=== PATIENT | female | born 1950 | race Caucasian/White ===

== ENCOUNTER 2020-07-23 11:04 | Emergency (ER) | payer MEDICARE ==
[~2020-07-23] VITALS: Ht 160 cm; Wt 80.0 kg
--- NOTE | 2020-07-23 12:00 | NUR ---
PT PRESENT TO ER FOR CLOTTED RIGHT CATH FOR DIALYSIS. DENIES CP OR ARM PAIN. SITE IS CDI.
[2020-07-23 13:09] LABS: BASOPHILS % (AUTO) 2 % (0-1); EOSINOPHILS % (AUTO) 4 % (1-7); LYMPHOCYTES % (AUTO) 15 % (22-44); MEAN CORPUSCULAR HEMOGLOBIN 31.4 pg (27.0-34.8); MEAN CORPUSCULAR HGB CONC 33.8 g/dL (32.4-35.8); MEAN PLATELET VOLUME 8.1 fL (7.4-10.4); MONOCYTES % (AUTO) 9 % (2-9); NEUTROPHILS % (AUTO) 71 % (42-75); PLATELET COUNT 254 x10^3/uL (130-400); RED BLOOD COUNT 2.85 x10^6/uL (3.82-5.3); RED CELL DISTRIBUTION WIDTH 15.6 % (9.6-15.2)
--- NOTE | 2020-07-23 13:09 | NUR ---
PT RESTING. IR WILL TAKE PT IN AFTERNOON. IV ESTABLISHED, LABS DRAWN. GIVEN PILLOW, BLANKETS. LIGHTS DIMMED. CALL LIGHT IN REACH. VSS
[2020-07-23 13:11] LABS: MD NO
[2020-07-23 13:18] LABS: ANION GAP 9 mmol/L (5-15); CALCIUM 8.8 mg/dL (8.5-10.1); CHLORIDE 101 mmol/L (98-107); CREATININE 7.43 mg/dL (0.55-1.02)
--- NOTE | 2020-07-23 14:03 | NUR ---
BREAK RN- PT RESTING IN BED, CALL LIGHT IN REACH.
[2020-07-23] MEDS ORDERED: LIDOCAINE 1%, 10ML ONE (14:22)
[2020-07-23] MEDS ORDERED: MIDAZOLAM 1 MG/ML, 5ML ONE (14:37)
[2020-07-23] MEDS ORDERED: FENTANYL PF 100 MCG/2ML ONE (14:37)
--- NOTE | 2020-07-23 14:40 | NUR ---
PT IN IR
[2020-07-23] MEDS ORDERED: LIDOCAINE 1%, 20ML ONE (14:57)
--- NOTE | 2020-07-23 15:29 | NUR ---
Kalli gruber in ED - 07/23/20 at 1539 by [facility] IR CALLED TO CONFIRM IF CATH NEEDS TO BE DONE TODAY BECAUSE IR TEAM IS NOT AVAILABLE. WILL DISCUSS Gianni PARKER
--- NOTE | 2020-07-23 15:38 | NUR ---
REPORT FROM IR 5 VERSED 100 MCG FENT WENT THROUGH SUBCLAVIAN W NEW CATH PORT. OLD ONE REMOVED. PT TOLERATED PROCEDURE WELL 135/60 HR60
[2020-07-23 16:04] VITALS: BP 167/66
--- NOTE | 2020-07-23 16:04 | NUR ---
PT BACK IN ROOM FROM IR. PT DROWSY. EASILY AROUSED. SITE CDI, VSS
[2020-07-23] MEDS ORDERED: ACETAMINOPHEN 500 MG TABLET ONE (16:42)
--- NOTE | 2020-07-23 16:47 | NUR ---
MEDICATED W TYLENOL FOR PAIN IN SHOULDER AND PLACED ICE PACK
[2020-07-23] MEDS ORDERED: ACETAMINOPHEN 500 MG TABLET PO ONE (17:00)
--- NOTE | 2020-07-23 17:12 | NUR ---
Patient given discharge instructions and they have confirmed that they understand the instructions. Patient in wheelchair to dc area
--- NOTE | 2020-07-23 17:12 | NUR ---
IV REMOVED. PT ASSISTED W GETTING DRESSED. READY FOR DC. STEADY ON FEET. FAMILY HERE
== END 2020-07-23 17:14 | disposition home or self-care (01) ==
LOC: ED 11:46
DX: T82.49XA Other complication of vascular dialysis catheter, initial encounter (principal); I12.9 Hypertensive chronic kidney disease with stage 1 through stage 4 chronic kidney disease, or unspecified chronic kidney disease; N18.9 Chronic kidney disease, unspecified
CPT/HCPCS: 36415; 36558; 80048; 85025; 99156; 99157; 99285; C1750; J1642; J2250; J3010; J3490

== ENCOUNTER → 2020-12-08 | Outpatient (CLI) | payer MEDICARE | END | disposition home or self-care (01) | LOC: CFH 08:34 | PROVIDERS: ATTEND Internal Medicine Cardiovascular Disease | DX: I08.8 Other rheumatic multiple valve diseases (principal); I11.9 Hypertensive heart disease without heart failure; E11.9 Type 2 diabetes mellitus without complications; I27.20 Pulmonary hypertension, unspecified | CPT/HCPCS: 93306; 93356 ==